=== PATIENT | female | born 1965 | race Caucasian/White ===

== ENCOUNTER 2017-07-10 09:00 | Inpatient (IN) | payer BC, OTHER ==
[~2017-07-10] VITALS: Ht 167.6 cm; Wt 67.6 kg
[~2017-07-10 09:00] MED LIST: ADDERALL 30 MG30 MG PO; DOXYCYCLINE 10100 MG PO; FLAGYL500 MG PO; LEVAQUIN 500 M500 M2 PO; LIDODERM 5%1 PATC1 TRANSDERM; MUCUS RELIEF400 MG PO; NAPROSYN500 M1 PO; NOHOMEMEDICATIONS; PREDNISONE50 MG PO; PROAIR HFA8.5 GM IH
[2017-07-10 09:20] VITALS: BP 110/74
[2017-07-10 12:13] LABS: HEMATOCRIT 37.3 % (37.0-47.0); HEMOGLOBIN 13.2 gm/dL (12.0-15.0); MCH 32.5 pg (26.0-34.0); MCHC 35.4 g/dL (28.0-37.0); MCV 91.7 fL (80.0-100.0); RBC 4.07 mil/uL (4.20-5.00); RDW 12.7 % (10.5-14.5); WBC 4.8 thou/uL (4.0-11.0)
[2017-07-10] MEDS ORDERED: IBUPROFEN 200200 M1 PO (15:31)
[2017-07-10 16:30] VITALS: BP 121/64
[2017-07-10 20:00] VITALS: BP 122/69
[2017-07-11 08:04] VITALS: BP 119/75
[2017-07-11 16:04] VITALS: BP 120/69
[2017-07-11 20:00] VITALS: BP 111/64
[2017-07-12 04:00] VITALS: BP 121/80
[2017-07-12] MEDS ORDERED: GUAIFENESIN/COD10 M1 PO (07:29)
[2017-07-12] MEDS ORDERED: PROAIR HFA8.5 GM PO (07:36)
[2017-07-12] MEDS ORDERED: LEVAQUIN 500 M500 M2 PO (07:36)
[2017-07-12] MEDS ORDERED: NICOTINE TRANSD21 M1 TRANSDERM (07:36)
[2017-07-12] MEDS ORDERED: PREDNISONE 10 M10 MG PO (07:36)
[2017-07-12 08:15] VITALS: BP 126/76
[2017-07-12 09:49] VITALS: BP 126/76
== END 2017-07-12 10:54 | disposition home or self-care (01) | DRG 203 ==
LOC: 4E 09:00
PROVIDERS: Family Medicine
DX: J45.901 Unspecified asthma with (acute) exacerbation (principal); F17.210 Nicotine dependence, cigarettes, uncomplicated; K74.60 Unspecified cirrhosis of liver; Z92.21 Personal history of antineoplastic chemotherapy; J32.9 Chronic sinusitis, unspecified; Z85.41 Personal history of malignant neoplasm of cervix uteri; Z88.0 Allergy status to penicillin; Z23 Encounter for immunization
CPT/HCPCS: 10783

== ENCOUNTER → 2020-09-07 | Outpatient (CLI) | payer BC, OTHER ==
[~2020-09-07] MED LIST changes: +GUAIFENESIN/COD10 M1 PO; +IBUPROFEN 200200 M1 PO; +NICOTINE TRANSD21 M1 TRANSDERM; +NORCO 5-325 TA1 EACH PO; +PREDNISONE 10 M10 MG PO; +PROAIR HFA8.5 GM PO
== END ==
LOC: CAT 11:21 → RAD 12:48 → CAT 12:48
PROVIDERS: ATTEND Family Medicine
DX: Z12.31 Encounter for screening mammogram for malignant neoplasm of breast (principal); K57.30 Diverticulosis of large intestine without perforation or abscess without bleeding; M54.9 Dorsalgia, unspecified; I70.0 Atherosclerosis of aorta; N85.8 Other specified noninflammatory disorders of uterus; R19.5 Other fecal abnormalities